=== PATIENT | female | born 1990 | race Caucasian/White ===

== ENCOUNTER 2016-07-09 12:05 | Emergency (ER) | payer MEDICAID ==
[2016-07-09 13:17] VITALS: BP 110/71
--- NOTE | 2016-07-09 13:56 | UC ---
Respiratory Complaint HPI - HPI Summary HPI Summary: 25 F w cough, sinus congestion, and sore throat for over a week. She admits to sneezing, runny nose, sinus congestions, and ribs hurt when cough. Denies any fever, abdominal pain, or n/v/d. She pain occurs just with coughing and not with breathing. She denies any recent travel, pain or swelling in calf muscle or any family history of blood clots. She is on nexplanon. She has never had strept before. PMH: none - History of Current Complaint Chief Complaint: UCRespiratory Stated Complaint: SORE THROAT COUGH RUNNY NOSE Time Seen by Provider: 07/09/16 13:40 Hx Last Menstrual Period: implanon - Allergies/Home Medications Allergies/Adverse Reactions: Allergies Allergy/AdvReac Type Severity Reaction Status Date / Time Penicillins [PCN] Allergy Intermediate Hives Verified 02/20/16 12:47 PMH/Surg Hx/FS Hx/Imm Hx Endocrine History Of: Denies: Diabetes, Thyroid Disease, Hyperthyroidism, Hypothyroidism, Dyslipidemia Cardiovascular History Of: Denies: Cardiac Disorders, Hypertension, Pacemaker/ICD, Myocardial Infarction , Congestive Heart Failure, Atrial Fibrillation, Deep Vein Thrombosis, Bleeding Disorders Respiratory History Of: Denies: COPD, Asthma, Bronchitis, Pneumonia, Pulmonary Embolism GI/ History Of: Reports: Ulcer - She states she has this, but not on medications for this. Testing = ? Denies: Gastroesophageal Reflux, Gastrointestinal Bleed, Gall Bladder Disease , Kidney Stones, Diverticulitis, Renal Disease, Urosepsis Neurological History Of: Denies: TIA, CVA, Dementia, Seizures, Migraine Psychological History Of: Reports: Anxiety, Depression - She stopped taking her medications. Denies: Bipolar Disorder, Schizophrenia, Post Traumatic Stress Disorder Cancer History Of: Denies: Lung Cancer, Colorectal Cancer, Breast Cancer, Prostate Cancer, Cervical Cancer Other History Of: Negative For: HIV, Hepatitis B, Hepatitis C, Anticoagulant Therapy - Surgical History Surgical History: Yes Surgery Procedure, Year, and Place: CHOLECYSTECTOMY- MAR 2015 - Family History Known Family History: Negative: Cardiac Disease, Hypertension, Diabetes, Renal Disease - Social History Alcohol Use: None Substance Use Type: None Smoking Status (MU): Former Smoker Type: Smokeless Tobacco Amount Used/How Often: 5 per week at most Have You Smoked in the Last Year: Yes When Did the Patient Quit Smoking/Using Tobacco: FEB 2015 Household Exposure Type: Cigarettes - Immunization History Most Recent Influenza Vaccination: 04/24/15 Most Recent Tetanus Shot: 02/13/13 Most Recent Pneumonia Vaccination: 04/24/13 Immunizations Comment: Reports having had Gardasil vaccine. Review of Systems Constitutional: Negative ENT: Sore Throat, Nasal Discharge Respiratory: Cough Cardiovascular: Chest Pain - rib pain with coughing Gastrointestinal: Negative All Other Systems Reviewed And Are Negative: Yes Physical Exam Triage Information Reviewed: Yes Vital Signs: Initial Vital Signs Temp 99.0 F 07/09/16 13:14 Pulse 81 07/09/16 13:14 Resp 20 07/09/16 13:14 BP 110/71 07/09/16 13:14 Pulse Ox 100 07/09/16 13:14 Vital Signs Reviewed: Yes Eyes: Positive: Conjunctiva Clear ENT: Positive: Normal ENT inspection, Pharyngeal erythema, Nasal drainage, TMs normal, Other: - sinus tenderness. Negative: Tonsillar swelling, Tonsillar exudate, Trismus, Muffled/hoarse voice Neck: Positive: Supple, Nontender, No Lymphadenopathy Respiratory: Positive: Chest non-tender, Lungs clear, Normal breath sounds Cardiovascular: Positive: RRR Musculoskeletal: Positive: No Edema UC Diagnostic Evaluation - Laboratory O2 Sat by Pulse Oximetry: 100 Respiratory Course/Dx - Course Course Of Treatment: 25 F presents with sinus pressure for over a week. sinus tenderness on exam, centor criteria zero, lungs CT, do not suspect PE as normal pulse ox, no risk factors for PE and no calf tenderness or swelling on exam, discussed at lenght of time could consider bacterial sinusitis, patient would like antibiotic will give, patient agrees with plan - Differential Dx/Diagnosis Differential Diagnosis/HQI/PQRI: Pulmonary Edema, Influenza, Lower Resp Infection, Sinusitis Provider Diagnoses: sinusitis Discharge - Discharge Plan Condition: Good Disposition: HOME Prescriptions: Benzonatate CAP* [Tessalon CAP*] 100 mg PO TID #15 cap DOXYcycline CAP(*) [DOXYcycline 100MG CAP(*)] 100 mg PO BID #20 cap Fluticasone NASAL SPRAY 50MCG* [Flonase NASAL SPRAY 50MCG*] 2 spray BOTH NARES DAILY #1 btl Patient Education Materials: Sinusitis (ED) Ref[place]: [facility] [place] [facility] [Outside] Additional Instructions: Take antibiotic twice a day for 10 days Use intranasal steroid one spray each nostril twice a day Use saline spray in nose as much as needed Use humidifier in room or can use warm water in bowls Use Tessalon three times a day for cough Take Tylenol or ibuprofen for pain every 6 hours Establish care with primary care physician Return to ED/UC if develop any new or worsening symptoms
== END 2016-07-09 14:16 | disposition home or self-care (01) ==
LOC: UCEAST 12:05
DX: J32.9 Chronic sinusitis, unspecified (principal); Z90.49 Acquired absence of other specified parts of digestive tract; Z88.0 Allergy status to penicillin; Z87.891 Personal history of nicotine dependence
CPT/HCPCS: 99212; G0463

== ENCOUNTER 2016-09-25 14:22 | Emergency (ER) | payer SELFPAY ==
[2016-09-25 14:35] VITALS: BP 122/76
--- NOTE | 2016-09-25 15:53 | UC ---
Headache HPI - HPI Summary HPI Summary: The patient comes in today for: 1. Headache, lightheaded (near syncope): Onset:Yesterday. Palliative/provocative: Nothing makes better or worse. Quality: vertiginous, ache. Region: [facility]ARDI[facility] SURGEON/head Severity: 09/17 Time: Constant. Associated symptoms: Near syncope: She was cleaning a house. She was using [employer] cleaning a bathtub. She stopped what she was doing. She knelt on her knees. This lasted about 5 minutes. She went home about 20-30 minutes later. She drank about a gallon of water. While sitting home, about 2-3 hours later, she was sitting in a chair playing with her 3 year old. She bent over to worm picker a toy and the near-syncope happened again. She will have a turning sensation about 1 minute after feeling lke she was going to faint. IT also lasted about 3 minutes. She had a headache develop. It started in the back of her head and went up to the top. It was a sharp pain. The headache lasted about 1-2 hours. IT went away with Tylenol. The rest of the night was unremarkable. She woke up about 7:10 AM and was feeling near syncopal at that time. It lasted another 5 minutes. She did not have any vertigo at that time. She went to work at 8 AM. 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 She went to the store at about 9:30-10:00. She got some trail mix and water. When she arrived at her second house (at about 1 PM), she had the same near syncope and vertigo. These lasted about 5-6 minutes. Then she got up and cleaned the house. She went to her third house (about 2 PM). She had another episode of near syncope and vertigo. She called her boss who met her there. The boss got her a Gatorade and protein bar which did not help. Her boss brought her here. She is not having any near syncope or vertigo, but has a frontal headache--dull ache. Fevers: None. Head injury: NOne Previous disease: NOne for vertigo, near syncope or headache except when she was three years ago. She is on Implanon and "some pill." Numbness/weakness: NOne Palpitations: None Chest pain: NOne Shortness of breath: None. * - History Of Current Complaint Chief Complaint: UCHeadache Stated Complaint: PAIN IN BACK OF HEAD DIZZY Time Seen by Provider: 09/25/16 15:36 Hx Last Menstrual Period: implanon ?: No - Allergies/Home Medications Allergies/Adverse Reactions: Allergies Allergy/AdvReac Type Severity Reaction Status Date / Time Penicillins [PCN] Allergy Intermediate Hives Verified 02/20/16 12:47 Home Medications: Home Medications Desogestrel & Ethinyl Estradio [Cyred 0.15-30 mg-Mcg] 1 tab PO 09/25/16 [History ] PMH/Surg Hx/FS Hx/Imm Hx Previously Healthy: Yes - Family plannning. Endocrine History Of: Denies: Diabetes, Thyroid Disease, Hyperthyroidism, Hypothyroidism, Dyslipidemia Cardiovascular History Of: Denies: Cardiac Disorders, Hypertension, Pacemaker/ICD, Myocardial Infarction , Congestive Heart Failure, Atrial Fibrillation, Deep Vein Thrombosis, Bleeding Disorders Respiratory History Of: Denies: COPD, Asthma, Bronchitis, Pneumonia, Pulmonary Embolism GI/ History Of: Reports: Ulcer - She states she has this, but not on medications for this. Testing = ? Denies: Gastroesophageal Reflux, Gastrointestinal Bleed, Gall Bladder Disease , Kidney Stones, Diverticulitis, Renal Disease, Urosepsis Neurological History Of: Denies: TIA, CVA, Dementia, Seizures, Migraine Psychological History Of: Reports: Anxiety, Depression - She stopped taking her medications. Denies: Bipolar Disorder, Schizophrenia, Post Traumatic Stress Disorder Cancer History Of: Denies: Lung Cancer, Colorectal Cancer, Breast Cancer, Prostate Cancer, Cervical Cancer Other History Of: Negative For: HIV, Hepatitis B, Hepatitis C, Anticoagulant Therapy - Surgical History Surgical History: Yes Surgery Procedure, Year, and Place: CHOLECYSTECTOMY- MAR 2015 - Family History Known Family History: Positive: Diabetes Negative: Cardiac Disease, Hypertension, Renal Disease - Social History Occupation: Employed Full-time Alcohol Use: Rare Substance Use Type: None Smoking Status (MU): Former Smoker Type: Smokeless Tobacco Amount Used/How Often: 5 per week at most Have You Smoked in the Last Year: Yes When Did the Patient Quit Smoking/Using Tobacco: FEB 2015 Household Exposure Type: Cigarettes - Immunization History Most Recent Influenza Vaccination: 04/24/15 Most Recent Tetanus Shot: 02/13/13 Most Recent Pneumonia Vaccination: 04/24/13 Immunizations Comment: Reports having had Gardasil vaccine. Review of Systems Constitutional: Negative Skin: Negative Eyes: Negative ENT: Negative Respiratory: Negative Cardiovascular: Negative Gastrointestinal: Negative Genitourinary: Negative All Other Systems Reviewed And Are Negative: Yes Physical Exam Triage Information Reviewed: Yes Appearance: Well-Appearing, No Pain Distress, Well-Nourished Vital Signs: Initial Vital Signs Temp 97.6 F 09/25/16 14:31 Pulse 72 09/25/16 14:31 Resp 18 09/25/16 14:31 BP 122/76 09/25/16 14:31 Pulse Ox 99 09/25/16 14:31 Vital Signs Reviewed: Yes Eyes: Positive: Conjunctiva Clear. Negative: Discharge ENT: Positive: Hearing grossly normal. Negative: Pharyngeal erythema, Nasal congestion, Nasal drainage, TM bulging, TM dull, TM red, Tonsillar swelling, Tonsillar exudate Dental: Negative: Gross Decay/Caries @, Dental Fracture @ Neck: Positive: Supple, Nontender, No Lymphadenopathy. Negative: Nuchal Rigidity Respiratory: Positive: Chest non-tender, Lungs clear, No respiratory distress, No accessory muscle use. Negative: Crackles, Wheezing Cardiovascular: Positive: RRR, No Murmur Abdomen Description: Positive: Nontender, No Organomegaly, Soft. Negative: Distended, Guarding Musculoskeletal: Positive: Strength Intact, ROM Intact, No Edema Neurological: Positive: Alert, Muscle Tone Normal Psychological: Positive: Normal Response To Family, Age Appropriate Behavior, Consolable Skin: Negative: rashes, breakdown - Neurologic exam: Inspection: no fasciculations. Cranial nerves (II-XII): intact Muscular tone: Reflexes: Biceps: 2+/2 x 2 Triceps: 2+/2 x 2 Brachioradialis: 2+/2 x 2 Patellar: 2+/2 x 2 Achilles: 2+/2 x 2 Coordination: Upper extremity: Alternating patting of thighs, alternating fingertips to thumb, index finger tip to nose--all normal. Lower extremity: Heel along clay--normal. Strength: Upper extremity: appropriate for age and symmetrical Lower extremity: appropriate for age and symmetrical Gait: Regular: Normal. Heel to toe: Normal. Rhomberg: Normal. Sensation: No complaint of numbness. Diagnostics - Laboratory Diagnostic Studies Completed/Ordered: Urine test: "Borderline H" "If is still suspected, please repeat test after 48-72 hours". . [place]- [place] test: + for right ear--minimally so. Headache Course/Dx - Differential Dx/Diagnosis Provider Diagnoses: Near syncope. Possible . Benign positional vertigo Discharge - Discharge Plan Condition: Stable Disposition: HOME Patient Education Materials: (ED), Near Syncope (ED), Vertigo (ED) Forms: *Work Release Referrals: No Primary Care Phys,NOPCP [Primary Care Provider] - 3 Days (Please see your primary care provider in about 72 hours to see how well you are doing. If you don't have a primary care provider, please contact the physician referral service. If you can't get in timely, please you may come back to see us until you can. If you get worse, please be seen sooner by us or the ER.)
== END 2016-09-25 16:49 | disposition home or self-care (01) ==
LOC: UCEAST 14:22
DX: R55 Syncope and collapse (principal); H81.10 Benign paroxysmal vertigo, unspecified ear; Z32.00 Encounter for pregnancy test, result unknown; F41.8 Other specified anxiety disorders; Z88.0 Allergy status to penicillin; Z90.49 Acquired absence of other specified parts of digestive tract; Z87.891 Personal history of nicotine dependence
CPT/HCPCS: 81003; 84702; 87086; 93005; 99211; G0463

== ENCOUNTER 2017-01-02 08:16 | Emergency (ER) | payer SELFPAY ==
[2017-01-02 08:25] VITALS: BP 132/67
--- NOTE | 2017-01-02 08:59 | UC ---
cosmo Delgadillo Timothy, scribed for Raina Simon MD on 01/02/17 at 0830 . Back Pain HPI - HPI Summary HPI Summary: Karuna Crystal is a 26 yo female presenting to [facility] with 8/10 RLQ abd pain 2 days ago, accompanied by N without vomiting and MCCLAIN, which resolved yesterday becoming 8/10 right low back pain. She denies any trauma. She notes that her urine is malodorous, and she had some chills last night. She denies any changes in urinary frequency, STI concern, vaginal itching or discharge. Her MHx includes ulcer, cholecystectomy, depression, anxiety, tobacco use. Pt medication list reviewed this visit. - History of Current Complaint Stated Complaint: LOWER BACK PAIN Time Seen by Provider: 01/02/17 08:52 Hx Obtained From: Patient Hx Last Menstrual Period: IMPLANON-DOESN'T GET Onset/Duration: Gradual Onset, Lasting Hours, Still Present Timing: Constant Severity Initially: Moderate Severity Currently: Moderate Pain Intensity: 8 Pain Scale Used: 0-10 Numeric Back Pain: Is Discrete @ - right back Associated Signs And Symptoms: Positive: Abdominal Pain - RLQ - resolved, Other - malodorous urine - Allergies/Home Medications Allergies/Adverse Reactions: Allergies Allergy/AdvReac Type Severity Reaction Status Date / Time Penicillins [PCN] Allergy Intermediate Hives Verified 01/02/17 08:19 Home Medications: Home Medications Acetaminophen TAB* [Tylenol TAB*] 2 tab PO PRN 01/02/17 [History] Etonogestrel IMPLANT(NF) [Implanon (NF)-not available] 01/02/17 [History] PMH/Surg Hx/FS Hx/Imm Hx GI/ History: Ulcer, Gall Bladder Disease Psychological History: Anxiety, Depression Other History Of: Negative For: HIV, Hepatitis B, Hepatitis C, Anticoagulant Therapy - Surgical History Surgical History: Yes Surgery Procedure, Year, and Place: CHOLECYSTECTOMY- MAR 2015. CARPAL TUNNEL - Family History Known Family History: Positive: Diabetes, Other - EtOH abuse Negative: Cardiac Disease, Hypertension, Renal Disease - Social History Occupation: Employed Full-time - cleaning Alcohol Use: Rare Substance Use Type: None Smoking Status (MU): Current Some Day Smoker Type: Smokeless Tobacco Amount Used/How Often: 5 per week at most Have You Smoked in the Last Year: Yes When Did the Patient Quit Smoking/Using Tobacco: FEB 2015 Household Exposure Type: Cigarettes - Immunization History Most Recent Influenza Vaccination: 04/24/15 Most Recent Tetanus Shot: 02/13/13 Most Recent Pneumonia Vaccination: 04/24/13 Immunizations Comment: Reports having had Gardasil vaccine. Review of Systems Constitutional: Chills Skin: Negative Eyes: Negative ENT: Negative Respiratory: Negative Cardiovascular: Negative Gastrointestinal: Abdominal Pain, Nausea Genitourinary: Other - malodorous urine, right flank pain Motor: Negative Neurovascular: Negative Musculoskeletal: Negative Neurological: Headache Psychological: Negative All Other Systems Reviewed And Are Negative: Yes Physical Exam Triage Information Reviewed: Yes Vital Signs: Initial Vital Signs Temp 98.2 F 01/02/17 08:20 Pulse 59 01/02/17 08:20 Resp 18 01/02/17 08:20 BP 132/67 01/02/17 08:20 Pulse Ox 100 01/02/17 08:20 Vital Signs Reviewed: Yes Back Pain Course/Dx - Course Course Of Treatment: Karuna Crystal is a 26 yo female presenting to [facility] with current 8/10 right flank pain and malodorous urine after 8/10 RLQ abd pain and nausea 2 days ago which resolved yesterday, denying trauma. Pt medication list reviewed this visit. Pt was counseled as to differentials and course of Tx, which she is agreeable to. She is aware that her urine will be sent for culture. After clinical evaluation and review of her lab studies, she will be discharged home with UTI with appropriate instructions and follow up. - Differential Dx/Diagnosis Differential Diagnosis/HQI/PQRI: Renal Colic, Other - UTI, kidney stones Provider Diagnoses: UTI Discharge - Discharge Plan Condition: Stable Disposition: HOME Prescriptions: Ciprofloxacin HCl [Cipro 500 MG TAB] 500 mg PO BID #14 tab Patient Education Materials: Urinary Tract Infection in Women (ED) Forms: *Work Release Referrals: [facility] [place] [facility] [Outside] - 2 Days Additional Instructions: - Stay well hydrated. Drink plenty of non-alcoholic, non-caffinated beverages - Take antibiotic as prescribed until gone. - your urine has been sent for additional testing. If you need a different antibiotic - you will receive a call from a member of your care team - Take pyridium as prescribed for discomfort. This will make your urine blaze orange - this is normal - Okay to alternate ibuprofen (Advil, motrin) and tylenol every 3 hours for pain. Take with food Call your doctor or return with questions or concerns - fevers, vomiting, chills , increased pain other questions or concerns Please follow up with the primary care physician provided regarding your visit to urgent care today. Return to urgent care or the emergency department with any new or recurring symptoms. The documentation as recorded by the cosmo hill Timothy accurately reflects the service I personally performed and the decisions made by me, Raina Simon MD.
== END 2017-01-02 09:05 | disposition home or self-care (01) ==
LOC: UCEAST 08:16
DX: N39.0 Urinary tract infection, site not specified (principal); Z72.0 Tobacco use
CPT/HCPCS: 81003; 84702; 87077; 87086; 87186; 99212; G0463

== ENCOUNTER 2017-02-05 18:58 | Emergency (ER) | payer SELFPAY ==
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
[2017-02-05] MEDS ORDERED: Ketorolac INJ* 60 MG/2 ML VIAL IM ONE (20:24)
--- NOTE | 2017-02-05 21:08 | RAD ---
Indication: Head injury. CT of the brain was performed without IV contrast. Ventricular structures are midline. No midline shift is noted. The extraction spaces are unremarkable. There is no evidence of intracranial mass or hemorrhage. No other high or low density lesions identified. Mastoid air cells and paranasal sinuses are otherwise clear. IMPRESSION: No intracranial mass or hemorrhage is noted.
--- NOTE | 2017-02-05 21:14 | RAD ---
Indication: Neck injury. CT of the cervical spine was obtained in the axial plane. Sagittal and coronal reconstructed images were obtained. Skull base demonstrates no evidence of fracture. Mastoid air cells are well aerated. The C1 ring is intact. The vertebral bodies appear normal in height and alignment. There is straightening of the normal lordosis. There is no fracture noted. No central or foraminal stenosis is identified. The lung apices are otherwise unremarkable. IMPRESSION: No fracture of the cervical spine is identified.
--- NOTE | 2017-02-05 21:16 | RAD ---
Indication: Right elbow injury. 4 views of the right elbow demonstrates no fracture. No other bone or joint abnormality is noted. IMPRESSION: No fracture of the right elbow is noted.
--- NOTE | 2017-02-05 21:17 | RAD ---
Indication: Left forearm pain. 2 views of left forearm demonstrates no fracture. No other bone or joint abnormality is noted. IMPRESSION: No fracture of the left forearm is noted.
[2017-02-05 21:40] VITALS: BP 122/67
== END 2017-02-05 21:40 | disposition home or self-care (01) ==
LOC: UCEAST 18:58
DX: S00.03XA Contusion of scalp, initial encounter (principal); S50.311A Abrasion of right elbow, initial encounter; M54.2 Cervicalgia; Y04.2XXA Assault by strike against or bumped into by another person, initial encounter; Y93.89 Activity, other specified; Y92.009 Unspecified place in unspecified non-institutional (private) residence as the place of occurrence of the external cause; Z90.49 Acquired absence of other specified parts of digestive tract; Z88.0 Allergy status to penicillin; Z87.891 Personal history of nicotine dependence
CPT/HCPCS: 70450; 72125; 96372; 99211; G0463; J1885

== ENCOUNTER 2017-04-04 14:20 | Emergency (ER) | payer SELFPAY ==
--- NOTE | 2017-04-04 14:53 | UC ---
Shoulder Pain HPI - HPI Summary HPI Summary: 26 year old female presents with complains left shoulder pain. - History of Current Complaint Stated Complaint: SHOULDER PAIN Time Seen by Provider: 04/04/17 14:52 Hx Obtained From: Patient Hx Last Menstrual Period: NEXPLANON Onset/Duration: Sudden Onset Severity Initially: Moderate Severity Currently: Moderate Pain Scale Used: 0-10 Numeric - 5 - Allergies/Home Medications Allergies/Adverse Reactions: Allergies Allergy/AdvReac Type Severity Reaction Status Date / Time Penicillins [PCN] Allergy Intermediate Hives Verified 04/04/17 14:58 PMH/Surg Hx/FS Hx/Imm Hx Previously Healthy: Yes Other History Of: Negative For: HIV, Hepatitis B, Hepatitis C, Anticoagulant Therapy - Surgical History Surgical History: Yes Surgery Procedure, Year, and Place: CHOLECYSTECTOMY- MAR 2015. CARPAL TUNNEL - Family History Known Family History: Positive: Diabetes, Other - EtOH abuse Negative: Cardiac Disease, Hypertension, Renal Disease - Social History Alcohol Use: Occasionally Substance Use Type: None Smoking Status (MU): Current Some Day Smoker Type: Smokeless Tobacco Amount Used/How Often: 5 per week at most Have You Smoked in the Last Year: Yes When Did the Patient Quit Smoking/Using Tobacco: FEB 2015 Household Exposure Type: Cigarettes - Immunization History Most Recent Influenza Vaccination: 04/24/15 Most Recent Tetanus Shot: 02/13/13 Most Recent Pneumonia Vaccination: 04/24/13 Immunizations Comment: Reports having had Gardasil vaccine. Review of Systems Constitutional: Negative Skin: Negative Eyes: Negative ENT: Negative Respiratory: Negative Cardiovascular: Negative Gastrointestinal: Negative Genitourinary: Negative Motor: Negative Neurovascular: Negative Musculoskeletal: Other: - left shoulder pain Neurological: Negative Psychological: Negative All Other Systems Reviewed And Are Negative: Yes Physical Exam Triage Information Reviewed: Yes Vital Signs Reviewed: Yes Eye Exam: Normal ENT Exam: Normal Dental Exam: Normal Neck exam: Normal Neck: Positive: 1 Respiratory Exam: Normal Cardiovascular Exam: Normal Abdominal Exam: Normal Musculoskeletal: Positive: Other: - left shoulder pain Neurological Exam: Normal Psychological Exam: Normal Skin Exam: Normal Shoulder Course/Dx - Differential Dx/Diagnosis Provider Diagnoses: left shoulder pain. left shoulder strain Discharge - Discharge Plan Condition: Stable Disposition: HOME Prescriptions: Meloxicam [Mobic] 7.5 mg PO BID PC #30 tab Methocarbamol TAB* [Robaxin 500 MG TAB*] 500 mg PO TID PRN #30 tab PRN Reason: Spasms Patient Education Materials: Shoulder Pain (ED) Referrals: Jatinder Olmos MD [Medical Doctor] - No Primary Care Phys,NOPCP [Primary Care Provider] -
[2017-04-04 15:02] VITALS: BP 113/66
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
== END 2017-04-04 16:00 | disposition home or self-care (01) ==
LOC: UCEAST 14:20
DX: S46.912A Strain of unspecified muscle, fascia and tendon at shoulder and upper arm level, left arm, initial encounter (principal); X58.XXXA Exposure to other specified factors, initial encounter; Y93.9 Activity, unspecified; Y92.9 Unspecified place or not applicable; Y99.9 Unspecified external cause status; F17.210 Nicotine dependence, cigarettes, uncomplicated; Z88.0 Allergy status to penicillin
CPT/HCPCS: 99212; G0463

== ENCOUNTER 2017-07-15 17:08 | Emergency (ER) | payer SELFPAY ==
[2017-07-15 19:29] VITALS: BP 117/76
--- NOTE | 2017-07-15 19:31 | UC ---
Respiratory Complaint HPI - HPI Summary HPI Summary: Pt presents with dry cough, chest congestion, and sinus pain/pressure/ congestion for 10 days. She tells me that she hates coming to the doctor and tries to let things run their course as best she can. Starting earlier today she had some nausea, but attributes this to post nasal drip. She has not taken anything for her symptoms due to lack of insurance. Denies fever, chills, SOB, chest pain, abdominal pain, vomiting, or diarrhea. She would like a test for the flu. She is still smoking daily. - History of Current Complaint Chief Complaint: UCRespiratory Stated Complaint: COLD,COUGH,NAUSEA Time Seen by Provider: 07/15/17 19:31 Hx Obtained From: Patient Hx Last Menstrual Period: NOW Onset/Duration: Gradual Onset Severity Initially: Moderate Severity Currently: Moderate Pain Intensity: 6 Pain Scale Used: 0-10 Numeric Character: Cough: Nonproductive - Allergies/Home Medications Allergies/Adverse Reactions: Allergies Allergy/AdvReac Type Severity Reaction Status Date / Time Penicillins Allergy Severe Hives Verified 07/15/17 19:29 PMH/Surg Hx/FS Hx/Imm Hx Previously Healthy: Yes Other History Of: Negative For: HIV, Hepatitis B, Hepatitis C, Anticoagulant Therapy - Surgical History Surgical History: Yes Surgery Procedure, Year, and Place: CHOLECYSTECTOMY- MAR 2015. CARPAL TUNNEL - Family History Known Family History: Positive: Diabetes, Other - EtOH abuse Negative: Cardiac Disease, Hypertension, Renal Disease - Social History Occupation: Employed Full-time Lives: With Family Alcohol Use: Occasionally Substance Use Type: None Smoking Status (MU): Current Every Day Smoker Type: Cigarettes, Smokeless Tobacco Amount Used/How Often: 3-4 CIG/DAY Have You Smoked in the Last Year: Yes When Did the Patient Quit Smoking/Using Tobacco: FEB 2015 Household Exposure Type: Cigarettes Cessation Counseling: Counseled 3+Min - 10 Min - Immunization History Most Recent Influenza Vaccination: 04/24/15 Most Recent Tetanus Shot: 02/13/13 Most Recent Pneumonia Vaccination: 04/24/13 Immunizations Comment: Reports having had Gardasil vaccine. Review of Systems Constitutional: Negative Skin: Negative Eyes: Negative ENT: Nasal Discharge, Sinus Congestion, Sinus Pain/Tenderness Respiratory: Cough Cardiovascular: Negative Gastrointestinal: Negative Musculoskeletal: Negative Neurological: Negative Psychological: Negative All Other Systems Reviewed And Are Negative: Yes Physical Exam Triage Information Reviewed: Yes Appearance: Well-Appearing, No Pain Distress, Well-Nourished Vital Signs: Initial Vital Signs Temp 98.2 F 07/15/17 19:26 Pulse 86 07/15/17 19:26 Resp 16 07/15/17 19:26 BP 117/76 07/15/17 19:26 Pulse Ox 100 07/15/17 19:26 Vital Signs Reviewed: Yes Eyes: Positive: Conjunctiva Clear. Negative: Conjunctiva Inflamed, Discharge ENT: Positive: Hearing grossly normal, Pharynx normal, Nasal congestion, Nasal drainage, TMs normal, Sinus tenderness, Uvula midline. Negative: Pharyngeal erythema, TM bulging, TM dull, TM red, Tonsillar swelling, Tonsillar exudate, Hoarse voice Neck: Positive: Supple, Other: - Tender anterior lymphadenopathy Respiratory: Positive: Chest non-tender, Lungs clear, Normal breath sounds, No respiratory distress, No accessory muscle use Cardiovascular: Positive: RRR, No Murmur, Pulses Normal Neurological: Positive: Alert Psychological: Positive: Age Appropriate Behavior Skin: Negative: rashes UC Diagnostic Evaluation - Laboratory O2 Sat by Pulse Oximetry: 100 Respiratory Course/Dx - Course Course Of Treatment: sinusitis - Differential Dx/Diagnosis Provider Diagnoses: Sinusitis Discharge - Discharge Plan Condition: Stable Disposition: HOME Prescriptions: Azithromycin TAB* [Zithromax TAB (Z-WAYNE) 250 mg #6 tabs] 2 tab PO .TODAY, THEN 1 DAILY #1 [place] Patient Education Materials: Sinusitis (ED) Forms: *Work Release Referrals: No Primary Care Phys,NOPCP [Primary Care Provider] - Additional Instructions: If you develop a fever, shortness of breath, chest pain, new or worsening symptoms - please call your PCP or go to the ED.
[2017-07-15] MEDS ORDERED: Azithromycin TAB* 250 MG PO ONE (19:35)
== END 2017-07-15 20:40 | disposition home or self-care (01) ==
LOC: UCEAST 17:08
DX: J32.9 Chronic sinusitis, unspecified (principal); Z90.49 Acquired absence of other specified parts of digestive tract; Z88.0 Allergy status to penicillin; Z71.6 Tobacco abuse counseling; F17.210 Nicotine dependence, cigarettes, uncomplicated
CPT/HCPCS: 87502; 99212; A9270-GY; G0463